=== PATIENT | female | born 1970 | race Native Hawaiian/Other Pacific Islander ===

== ENCOUNTER 2017-06-17 07:36 | Outpatient (CLI) | payer OTHER | END 2017-06-17 19:12 | disposition home or self-care (01) | LOC: RAD 07:36 | DX: M54.5 Low back pain (principal) ==

== ENCOUNTER 2019-02-21 11:36 | Outpatient (CLI) | payer OTHER | END 2019-02-21 20:05 | disposition home or self-care (01) | LOC: RAD 11:36 | DX: R05 Cough (principal) ==